=== PATIENT | female | born 1995 | race Caucasian/White ===

== ENCOUNTER 2020-02-02 19:42 | Emergency (ER) | payer OTHER ==
[~2020-02-02] VITALS: Ht 170.2 cm; Wt 132.3 kg
--- NOTE | 2020-02-02 20:30 | NUR ---
PT WITH COMPLAINTS OF LOW BACK PAIN AND LOWER ABD PAIN 01/17 THAT STARTED EARLIER TODAY. PT STATES SHE WAS LIFTING A BRACKET TO PUT ON HER CAR AND ABOUT 2 HOURS LATER WITH LOWER BACK AND LOWER ABD PAIN. PT HR HIGH, ATTACHED TO ALL MONITORS AND POSITION OF COMFORT ASSUMED.
--- NOTE | 2020-02-02 20:32 | NUR ---
PT DENIES URINARY SYMPTOMS BUT STATES SHE HAS HAD N/V X 2 WEEKS.
[2020-02-02] MEDS ORDERED: ZOLOFT (20:35)
--- NOTE | 2020-02-02 21:23 | NUR ---
I MADE 2 UNSUCCESSFUL IV ATTEMPTS.
--- NOTE | 2020-02-02 21:28 | NUR ---
STILL WAITING FOR MD ASSESSMENT AND ORDERS.
--- NOTE | 2020-02-02 21:47 | NUR ---
JACQUES RIVERA TO PLACE PIV
[2020-02-02] MEDS ORDERED: ONDANSETRON 2MG/ML, 2ML ONE (22:27)
[2020-02-02] MEDS ORDERED: KETOROLAC 30 MG/1 ML ONE (22:27)
[2020-02-02] MEDS ORDERED: MORPHINE SULFATE 4 MG/ML, 1ML ONE (22:27)
[2020-02-02] MEDS ORDERED: MORPHINE SULFATE 4 MG/ML, 1ML IVPush PRN (22:30)
[2020-02-02] MEDS ORDERED: KETOROLAC 30 MG/1 ML IVPush ONE (22:30)
[2020-02-02] MEDS ORDERED: ONDANSETRON 2MG/ML, 2ML IVPush ONE (22:30)
[2020-02-02] MEDS ORDERED: SODIUM CHLORIDE FLUSH 10ML SYR IVF ONE (22:30)
--- NOTE | 2020-02-02 22:44 | NUR ---
PT MEDICATED FOR PAIN PER EMAR
[2020-02-02 23:02] LABS: BASOPHILS # (AUTO) 0.04 x10^3/uL (0-0.1); BASOPHILS % (AUTO) 0 % (0-1); EOSINOPHILS # (AUTO) 0.04 x10^3/uL (0-0.4); EOSINOPHILS % (AUTO) 0 % (1-7); LYMPHOCYTES # (AUTO) 2.71 x10^3/uL (1-3.4); LYMPHOCYTES % (AUTO) 23 % (22-44); MD NO; MEAN CORPUSCULAR HEMOGLOBIN 26.4 pg (27.0-34.8); MEAN CORPUSCULAR HGB CONC 32.5 g/dL (32.4-35.8); MEAN CORPUSCULAR VOLUME 81.2 fL (80-100); MEAN PLATELET VOLUME 7.1 fL (7.4-10.4); MONOCYTES # (AUTO) 0.76 x10^3/uL (0.2-0.8); MONOCYTES % (AUTO) 6 % (2-9); NEUTROPHILS # (AUTO) 8.31 x10^3/uL (1.8-6.8); NEUTROPHILS % (AUTO) 70 % (42-75); PLATELET COUNT 362 x10^3/uL (130-400); RED CELL DISTRIBUTION WIDTH 16.5 % (9.6-15.2)
[2020-02-02 23:12] LABS: ALBUMIN 3.1 g/dL (3.4-5.0); ANION GAP 4 mmol/L (5-15); CALCIUM 8.8 mg/dL (8.5-10.1); CHLORIDE 107 mmol/L (98-107); CREATININE 0.72 mg/dL (0.55-1.02)
--- NOTE | 2020-02-02 23:12 | NUR ---
REPORT RECIEVED FROM ZANE HANNA. PATIENT ON ALL MONTIORS, AND ALL SAFETY MEASURES IN PLACE.
[2020-02-02] MEDS ORDERED: SODIUM CHLORIDE 0.9% 1,000ML IVBOLUS ONE (23:30)
[2020-02-02 23:31] LABS: MICROSCOPIC INDICATED
--- NOTE | 2020-02-03 00:11 | NUR ---
PATIENT TO RADIOLOGY
[2020-02-03 00:42] VITALS: BP 109/74
--- NOTE | 2020-02-03 00:44 | NUR ---
PATIENT BACK FROM XRAY, MEDICATED PER EMAR, SAFETY MEASURES IN PLACE.
--- NOTE | 2020-02-03 01:22 | NUR ---
Tiki castrejon in [facility] - 02/03/20 at 0123 by ALLYSON FIRST ATTEMPT TO CALL REPORT TO FLOOR.
== END 2020-02-03 01:37 | disposition home or self-care (01) ==
LOC: ED 02-03 01:00
DX: M54.5 Low back pain (principal); R00.0 Tachycardia, unspecified
CPT/HCPCS: 36415; 72110; 80048; 81001; 82040; 83605; 84703; 85025; 93005; 96361; 96374; 96375; 99285; J1885; J2270; J2405; J7030; J7512

== ENCOUNTER 2020-10-08 11:48 | Emergency (ER) | payer OTHER ==
[~2020-10-08] VITALS: Ht 170.2 cm; Wt 119.7 kg
[~2020-10-08 11:48] MED LIST: ZOLOFT
--- NOTE | 2020-10-08 12:06 | NUR ---
PT AMBULATED TO ROOM FROM TRIAGE. PT STATED THAT SHE IS 17 WEEKS AND CO NAUSEA, VOMITING AND RLQ PAIN SINCE 0300 THIS MORNING. PT DENIES ANY VAGINAL BLEEDING OR DISCHARGE. PT'S HR 130'S-140'S, EKG IN ROOM.
--- NOTE | 2020-10-08 12:25 | NUR ---
US AT BEDSIDE
[2020-10-08] MEDS ORDERED: ONDANSETRON 2MG/ML, 2ML IVPush ONE (12:30)
[2020-10-08] MEDS ORDERED: SODIUM CHLORIDE FLUSH 10ML SYR IVF ONE ×2 (12:30)
[2020-10-08] MEDS ORDERED: SODIUM CHLORIDE 0.9% 1,000ML IVBOLUS ONE ×3 (12:30)
[2020-10-08 12:40] LABS: BASOPHILS % (AUTO) 0 % (0-1); EOSINOPHILS % (AUTO) 0 % (1-7); LYMPHOCYTES % (AUTO) 18 % (22-44); MEAN CORPUSCULAR HEMOGLOBIN 27.5 pg (27.0-34.8); MEAN CORPUSCULAR HGB CONC 33.3 g/dL (32.4-35.8); MEAN PLATELET VOLUME 7.3 fL (7.4-10.4); MONOCYTES % (AUTO) 5 % (2-9); NEUTROPHILS % (AUTO) 77 % (42-75); PLATELET COUNT 275 x10^3/uL (130-400); RED BLOOD COUNT 4.55 x10^6/uL (3.82-5.3); RED CELL DISTRIBUTION WIDTH 16.8 % (9.6-15.2)
[2020-10-08] MEDS ORDERED: ONDANSETRON 2MG/ML, 2ML ONE (12:40)
[2020-10-08 12:48] LABS: ALBUMIN 3.1 g/dL (3.4-5.0); ANION GAP 9 mmol/L (5-15); CALCIUM 8.8 mg/dL (8.5-10.1); CHLORIDE 106 mmol/L (98-107)
[2020-10-08 12:57] LABS: ALANINE AMINOTRANSFERASE 29 U/L (12-78); ALKALINE PHOSPHATASE 64 U/L (45-117); BILIRUBIN,TOTAL 0.5 mg/dL (0.2-1.0); CREATININE 0.61 mg/dL (0.55-1.02); TOTAL PROTEIN 8.2 g/dL (6.4-8.2)
[2020-10-08 13:04] LABS: MICROSCOPIC INDICATED
[2020-10-08 14:00] VITALS: BP 146/81
--- NOTE | 2020-10-08 14:00 | NUR ---
PT RESTING COMFORTABLY IN [facility]. CALL LIGHT WITHIN REACH.
--- NOTE | 2020-10-08 15:15 | NUR ---
DISCHARGE INSTRUCTIONS REVIEWED WITH PT. ALL QUESTIONS ANSWERED AT THIS TIME.
== END 2020-10-08 15:17 | disposition home or self-care (01) ==
LOC: ED 15:05
DX: O23.11 Infections of bladder in pregnancy, first trimester (principal); R42 Dizziness and giddiness; R00.0 Tachycardia, unspecified; R10.31 Right lower quadrant pain; I10 Essential (primary) hypertension; Z3A.16 16 weeks gestation of pregnancy
CPT/HCPCS: 36415; 76700; 76815; 80053; 81001; 83690; 85025; 87040; 87086; 93005; 96361; 96374; 99285; J2405; J7030

== ENCOUNTER 2020-11-18 09:19 | Outpatient (CLI) | payer OTHER ==
[~2020-11-18] VITALS: Ht 170.2 cm; Wt 120.0 kg
[2020-11-18 10:00] VITALS: BP 114/77
[2020-11-18 11:11] LABS: MICROSCOPIC INDICATED
[2020-11-18] MEDS ORDERED: PREN1TAB10 PO (11:29)
== END 2020-11-18 12:05 | disposition home or self-care (01) ==
LOC: LDOP 09:19
PROVIDERS: ATTEND Obstetrics & Gynecology
DX: O46.92 Antepartum hemorrhage, unspecified, second trimester (principal); O26.892 Other specified pregnancy related conditions, second trimester; R25.2 Cramp and spasm; Z3A.22 22 weeks gestation of pregnancy
CPT/HCPCS: 76815; 81001; 87086; 99201; 99211; G0463

== ENCOUNTER 2020-12-20 17:24 | Outpatient (CLI) | payer OTHER ==
[~2020-12-20 17:24] MED LIST changes: +PREN1TAB10 PO
[2020-12-20] MEDS ORDERED: LACTATED RINGERS 1,000 ML IVBOLUS ONE (18:00)
[2020-12-20] MEDS ORDERED: D5%-LACTATED RINGERS 1,000 ML IV SCH (18:00)
[2020-12-20] MEDS ORDERED: ONDANSETRON 2MG/ML, 2ML IVPush PRN (18:00)
[2020-12-20] MEDS ORDERED: ONDANSETRON 2MG/ML, 2ML ONE (18:02)
[2020-12-20 18:15] LABS: BASOPHILS % (AUTO) 0 % (0-1); EOSINOPHILS % (AUTO) 0 % (1-7); LYMPHOCYTES % (AUTO) 18 % (22-44); MEAN CORPUSCULAR HEMOGLOBIN 28.3 pg (27.0-34.8); MEAN CORPUSCULAR HGB CONC 32.8 g/dL (32.4-35.8); MEAN PLATELET VOLUME 6.9 fL (7.4-10.4); MONOCYTES % (AUTO) 6 % (2-9); NEUTROPHILS % (AUTO) 76 % (42-75); PLATELET COUNT 291 x10^3/uL (130-400); RED BLOOD COUNT 3.99 x10^6/uL (3.82-5.3); RED CELL DISTRIBUTION WIDTH 17.1 % (9.6-15.2)
[2020-12-20 18:24] LABS: MICROSCOPIC INDICATED
[2020-12-20 18:25] LABS: ALANINE AMINOTRANSFERASE 13 U/L (12-78); ALBUMIN 2.5 g/dL (3.4-5.0); ANION GAP 8 mmol/L (5-15); CALCIUM 9.1 mg/dL (8.5-10.1); CHLORIDE 103 mmol/L (98-107); CREATININE 0.56 mg/dL (0.55-1.02)
[2020-12-20 18:28] LABS: ALKALINE PHOSPHATASE 85 U/L (45-117); BILIRUBIN,TOTAL 0.4 mg/dL (0.2-1.0); TOTAL PROTEIN 7.4 g/dL (6.4-8.2)
== END 2020-12-20 20:15 | disposition home or self-care (01) ==
LOC: LDOP 17:24
PROVIDERS: ATTEND Obstetrics & Gynecology
DX: O21.2 Late vomiting of pregnancy (principal); O26.892 Other specified pregnancy related conditions, second trimester; R10.9 Unspecified abdominal pain; R19.7 Diarrhea, unspecified; Z3A.26 26 weeks gestation of pregnancy
CPT/HCPCS: 36415; 59025; 80053; 81001; 82570; 84156; 84550; 85025; 87086; 96360; 96361; J7120; J7121

== ENCOUNTER 2020-12-25 15:31 | Outpatient (CLI) | payer OTHER ==
[~2020-12-25] VITALS: Ht 170.2 cm; Wt 120.0 kg
[2020-12-25 16:00] VITALS: BP 131/75
[2020-12-25 16:51] LABS: MICROSCOPIC INDICATED
[2020-12-25] MEDS ORDERED: IBUP-1222 PO ×2 (17:29)
[2020-12-25] MEDS ORDERED: NIFE30TA2 PO ×2 (17:29)
[2020-12-25] MEDS ORDERED: NITR100C56 PO (17:45)
[2020-12-25] MEDS ORDERED: SERT50TA PO (17:45)
== END 2020-12-25 17:56 | disposition home or self-care (01) ==
LOC: LDOP 15:31
PROVIDERS: ATTEND Obstetrics & Gynecology
DX: O46.92 Antepartum hemorrhage, unspecified, second trimester (principal); Z3A.27 27 weeks gestation of pregnancy
CPT/HCPCS: 59025; 76815; 81001; 84112; 87086

== ENCOUNTER 2021-01-23 15:22 | Outpatient (CLI) | payer OTHER ==
[~2021-01-23] VITALS: Ht 170.2 cm; Wt 120.0 kg
[~2021-01-23 15:22] MED LIST changes: +IBUP-1222 PO; +NIFE30TA2 PO; +NITR100C56 PO; +SERT50TA PO
[2021-01-23 15:38] VITALS: BP 147/72
[2021-01-23 16:08] LABS: ALANINE AMINOTRANSFERASE 19 U/L (12-78); ALBUMIN 2.4 g/dL (3.4-5.0); ANION GAP 7 mmol/L (5-15); BILIRUBIN, DIRECT 0.2 mg/dL (0.1-0.2); CALCIUM 9.1 mg/dL (8.5-10.1); CHLORIDE 106 mmol/L (98-107); CREATININE 0.49 mg/dL (0.55-1.02)
[2021-01-23 16:11] LABS: ALKALINE PHOSPHATASE 97 U/L (45-117); BILIRUBIN,TOTAL 0.4 mg/dL (0.2-1.0); TOTAL PROTEIN 7.7 g/dL (6.4-8.2)
[2021-01-23 16:18] LABS: BASOPHILS % (AUTO) 0 % (0-1); EOSINOPHILS % (AUTO) 0 % (1-7); LYMPHOCYTES % (AUTO) 17 % (22-44); MEAN CORPUSCULAR HEMOGLOBIN 27.7 pg (27.0-34.8); MEAN CORPUSCULAR HGB CONC 32.4 g/dL (32.4-35.8); MEAN PLATELET VOLUME 6.8 fL (7.4-10.4); MONOCYTES % (AUTO) 8 % (2-9); NEUTROPHILS % (AUTO) 74 % (42-75); PLATELET COUNT 297 x10^3/uL (130-400); RED BLOOD COUNT 4.11 x10^6/uL (3.82-5.3); RED CELL DISTRIBUTION WIDTH 17.6 % (9.6-15.2)
[2021-01-23 17:37] LABS: FREE T4 (FREE THYROXINE) 0.95 ng/dL (0.76-1.46)
[2021-01-23 18:11] LABS: MICROSCOPIC INDICATED
== END 2021-01-23 19:10 | disposition home or self-care (01) ==
LOC: LDOP 15:22
PROVIDERS: ATTEND Obstetrics & Gynecology
DX: O99.413 Diseases of the circulatory system complicating pregnancy, third trimester (principal); O16.3 Unspecified maternal hypertension, third trimester; Z3A.31 31 weeks gestation of pregnancy
CPT/HCPCS: 36415; 59025; 76815; 80053; 81001; 82248; 82570; 84156; 84439; 84443; 84550; 85025; 86592; 86803; 87806; 93005; G0475

== ENCOUNTER 2021-02-06 15:08 | Outpatient (CLI) | payer OTHER ==
[~2021-02-06] VITALS: Ht 170.2 cm; Wt 120.9 kg
[2021-02-06 15:22] VITALS: BP 134/73
[2021-02-06 15:39] LABS: BASOPHILS % (AUTO) 0 % (0-1); EOSINOPHILS % (AUTO) 0 % (1-7); LYMPHOCYTES % (AUTO) 16 % (22-44); MEAN CORPUSCULAR HEMOGLOBIN 28.1 pg (27.0-34.8); MEAN PLATELET VOLUME 6.6 fL (7.4-10.4); MONOCYTES % (AUTO) 7 % (2-9); NEUTROPHILS % (AUTO) 76 % (42-75); PLATELET COUNT 294 x10^3/uL (130-400); RED BLOOD COUNT 3.92 x10^6/uL (3.82-5.3); RED CELL DISTRIBUTION WIDTH 17.6 % (9.6-15.2)
[2021-02-06 15:47] LABS: ALANINE AMINOTRANSFERASE 18 U/L (12-78); ALBUMIN 2.2 g/dL (3.4-5.0); ANION GAP 7 mmol/L (5-15); BILIRUBIN, DIRECT 0.1 mg/dL (0.1-0.2); CALCIUM 8.9 mg/dL (8.5-10.1); CHLORIDE 106 mmol/L (98-107); CREATININE 0.49 mg/dL (0.55-1.02)
[2021-02-06 15:50] LABS: ALKALINE PHOSPHATASE 108 U/L (45-117); BILIRUBIN,TOTAL 0.4 mg/dL (0.2-1.0); TOTAL PROTEIN 7.2 g/dL (6.4-8.2)
[2021-02-06 17:16] LABS: MICROSCOPIC AUTO
[2021-02-06 18:08] LABS: AMPHETAMINE SCREEN, URINE Negative (Negative); BARBITURATE SCREEN, URINE Negative (Negative); BENZODIAZEPINE SCREEN, URINE Negative (Negative); CANNABINOID SCREEN, URINE Negative (Negative); COCAINE SCREEN, URINE Negative (Negative); METHADONE SCREEN, URINE Negative (Negative); OPIATE SCREEN, URINE Negative (Negative); PROTEIN/CREATININE RATIO,URINE 299 (0-200); TOTAL PROTEIN,URINE RANDOM 21 mg/dL (0-12)
== END 2021-02-06 19:00 | disposition home or self-care (01) ==
LOC: LDOP 15:08
PROVIDERS: ATTEND Obstetrics & Gynecology
DX: O13.3 Gestational [pregnancy-induced] hypertension without significant proteinuria, third trimester (principal); Z3A.33 33 weeks gestation of pregnancy
CPT/HCPCS: 36415; 59025; 80053; 80307; 81001; 82248; 82570; 84156; 84550; 85025; 87086

== ENCOUNTER 2021-02-09 21:31 | Outpatient (CLI) | payer OTHER ==
[~2021-02-09] VITALS: Ht 170.2 cm; Wt 121.4 kg
== END 2021-02-09 23:14 | disposition home or self-care (01) ==
LOC: LDOP 21:31
PROVIDERS: ATTEND Obstetrics & Gynecology
DX: O36.8130 Decreased fetal movements, third trimester, not applicable or unspecified (principal); Z3A.34 34 weeks gestation of pregnancy
CPT/HCPCS: 59025; 76815

== ENCOUNTER 2021-02-11 23:41 | Outpatient (CLI) | payer OTHER ==
[2021-02-12 00:21] LABS: MICROSCOPIC INDICATED
[2021-02-12 00:29] LABS: CREATININE,URINE RANDOM 93.3 mg/dL
[2021-02-12 00:30] LABS: ANION GAP 7 mmol/L (5-15); BASOPHILS % (AUTO) 0 % (0-1); CALCIUM 8.6 mg/dL (8.5-10.1); CHLORIDE 105 mmol/L (98-107); CREATININE 0.47 mg/dL (0.55-1.02); EOSINOPHILS % (AUTO) 0 % (1-7); LYMPHOCYTES % (AUTO) 24 % (22-44); MEAN CORPUSCULAR HEMOGLOBIN 28.2 pg (27.0-34.8); MEAN CORPUSCULAR HGB CONC 33.1 g/dL (32.4-35.8); MEAN PLATELET VOLUME 6.8 fL (7.4-10.4); MONOCYTES % (AUTO) 11 % (2-9); NEUTROPHILS % (AUTO) 65 % (42-75); PLATELET COUNT 280 x10^3/uL (130-400); RED BLOOD COUNT 3.56 x10^6/uL (3.82-5.3); RED CELL DISTRIBUTION WIDTH 17.5 % (9.6-15.2)
[2021-02-12 00:31] LABS: ALANINE AMINOTRANSFERASE 18 U/L (12-78); ALBUMIN 2.1 g/dL (3.4-5.0)
[2021-02-12 00:33] LABS: ALKALINE PHOSPHATASE 89 U/L (45-117); BILIRUBIN,TOTAL 0.2 mg/dL (0.2-1.0); TOTAL PROTEIN 6.8 g/dL (6.4-8.2)
[2021-02-12 00:39] LABS: BILIRUBIN, DIRECT < 0.1 mg/dL (0.1-0.2)
== END 2021-02-12 01:15 | disposition home or self-care (01) ==
LOC: LDOP 23:41
PROVIDERS: ATTEND Obstetrics & Gynecology
DX: O16.3 Unspecified maternal hypertension, third trimester (principal); Z3A.34 34 weeks gestation of pregnancy
CPT/HCPCS: 36415; 59025; 80053; 81001; 82248; 82570; 84156; 84550; 85025; 87086

== ENCOUNTER 2021-02-13 09:39 | Outpatient (CLI) | payer OTHER ==
[~2021-02-13] VITALS: Ht 170.2 cm; Wt 121.4 kg
[2021-02-13 09:48] VITALS: BP 121/76
== END 2021-02-13 11:20 | disposition home or self-care (01) ==
LOC: LDOP 09:39
PROVIDERS: ATTEND Obstetrics & Gynecology
DX: Z34.93 Encounter for supervision of normal pregnancy, unspecified, third trimester (principal); Z3A.34 34 weeks gestation of pregnancy
CPT/HCPCS: 59025

== ENCOUNTER 2021-03-01 19:56 | Inpatient (IN) | payer OTHER ==
[~2021-03-01] VITALS: Ht 170.2 cm; Wt 122.2 kg
[2021-03-01] MEDS: LACTATED RINGERS 1,000 ML IV SCH (20:30)
[2021-03-01 20:58] LABS: MICROSCOPIC INDICATED
[2021-03-01] MEDS ORDERED: ONDANSETRON 2MG/ML, 2ML IVPush PRN (21:00)
[2021-03-01] MEDS ORDERED: OXYTOCIN 30U/ 0.9% NaCL 500ML 500 ML IV ONE (21:00)
[2021-03-01] MEDS ORDERED: METOCLOPRAMIDE 5 MG/ML, 2ML IVPush PRN (21:00)
[2021-03-01] MEDS ORDERED: TERBUTALINE 1 MG/ML, 1ML SQ PRN (21:00)
[2021-03-01] MEDS ORDERED: SODIUM CITRATE/CITRIC ACID 30 ML UDC PO PRN (21:00)
[2021-03-01] MEDS ORDERED: FENTANYL PF 100 MCG/2ML IV PRN (21:00)
[2021-03-01] MEDS ORDERED: TERBUTALINE 1 MG/ML, 1ML IVPush PRN (21:00)
[2021-03-01] MEDS: D5%-LACTATED RINGERS 1,000 ML IV SCH (21:00)
[2021-03-01] MEDS ORDERED: FENTANYL PF 100 MCG/2ML IVPush PRN (21:00)
[2021-03-01] MEDS ORDERED: CALCIUM CARBONATE 500 MG TAB.CHEW PO PRN (21:00)
[2021-03-01 21:25] LABS: ALANINE AMINOTRANSFERASE 11 U/L (12-78); ALBUMIN 2.2 g/dL (3.4-5.0); ANION GAP 6 mmol/L (5-15); CALCIUM 8.4 mg/dL (8.5-10.1); CHLORIDE 105 mmol/L (98-107)
[2021-03-01 21:28] LABS: ALKALINE PHOSPHATASE 113 U/L (45-117); BILIRUBIN,TOTAL 0.3 mg/dL (0.2-1.0); CREATININE 0.62 mg/dL (0.55-1.02); TOTAL PROTEIN 7.1 g/dL (6.4-8.2)
[2021-03-01 21:31] LABS: BILIRUBIN, DIRECT < 0.1 mg/dL (0.1-0.2)
[2021-03-01 21:42] LABS: BASOPHILS % (AUTO) 0 % (0-1); EOSINOPHILS % (AUTO) 0 % (1-7); LYMPHOCYTES % (AUTO) 20 % (22-44); MEAN CORPUSCULAR HEMOGLOBIN 28.5 pg (27.0-34.8); MEAN CORPUSCULAR HGB CONC 33.7 g/dL (32.4-35.8); MEAN PLATELET VOLUME 6.9 fL (7.4-10.4); MONOCYTES % (AUTO) 9 % (2-9); NEUTROPHILS % (AUTO) 71 % (42-75); PLATELET COUNT 257 x10^3/uL (130-400); RED CELL DISTRIBUTION WIDTH 17.6 % (9.6-15.2)
[2021-03-01] MEDS: MISOPROSTOL 25 MCG TABLET VG PRN (22:14)
[2021-03-02] MEDS: D5%-LACTATED RINGERS 1,000 ML IV SCH ×3 (05:00→21:00)
[2021-03-02] MEDS: MISOPROSTOL 25 MCG TABLET VG PRN (06:32)
[2021-03-02] MEDS ORDERED: OXYTOCIN 30U/ 0.9% NaCL 500ML 500 ML ONE (10:56)
[2021-03-02] MEDS: LACTATED RINGERS 1,000 ML IV SCH ×4 (11:00→21:00)
[2021-03-02] MEDS ORDERED: FENTANYL/BUPIV./NS/PF 250 ML EPIDCONT ONE (19:16)
[2021-03-02] MEDS ORDERED: BUPIVACAINE 0.25% ONE (19:16)
[2021-03-02] MEDS ORDERED: FENTANYL/BUPIV./NS/PF 250 ML EPIDCONT SCH (20:00)
[2021-03-02] MEDS ORDERED: EPHEDRINE 50 MG/ML, 1ML IVPush PRN (20:00)
[2021-03-02] MEDS ORDERED: LACTATED RINGERS 1,000 ML IVBOLUS PRN (20:00)
[2021-03-03] MEDS ORDERED: NEWBORN KIT ONE (02:27)
[2021-03-03] MEDS ORDERED: MISOPROSTOL 200 MCG TABLET ONE (03:21)
[2021-03-03] MEDS ORDERED: IBUPROFEN 800 MG TABLET PO PRN (04:00)
[2021-03-03] MEDS: OXYTOCIN 30U/ 0.9% NaCL 500ML 500 ML IV SCH ×2 (04:00→14:00)
[2021-03-03] MEDS: LACTATED RINGERS 1,000 ML IV SCH ×5 (04:00→16:23)
[2021-03-03] MEDS ORDERED: HYDROcodone/APAP 5/325 TABLET PO PRN (04:00)
[2021-03-03] MEDS ORDERED: MISOPROSTOL 200 MCG TABLET PR PRN (04:00)
[2021-03-03] MEDS ORDERED: BISACODYL 10 MG SUPP PR PRN (04:00)
[2021-03-03] MEDS ORDERED: ACETAMINOPHEN 325 MG TABLET PO PRN (04:00)
[2021-03-03] MEDS ORDERED: OXYcodone/APAP 5/325MG TABLET PO PRN (04:00)
[2021-03-03] MEDS ORDERED: RHOGAM FROM BLOOD BANK 1 NOTE EA IM/IV ONE (04:00)
[2021-03-03] MEDS ORDERED: ONDANSETRON 2MG/ML, 2ML IV PRN (04:00)
[2021-03-03] MEDS: D5%-LACTATED RINGERS 1,000 ML IV SCH ×2 (05:00→13:00)
[2021-03-03 06:00] VITALS: BP 103/62
[2021-03-03 08:00] VITALS: BP 130/74
[2021-03-03] MEDS: DOCUSATE 100 MG CAPSULE PO PRN ×2 (09:58→20:20)
[2021-03-03] MEDS: PRENATAL VIT/IRON/FA 1 EACH TABLET PO SCH (09:58)
[2021-03-03 10:53] LABS: BASOPHILS % (AUTO) 0 % (0-1); EOSINOPHILS % (AUTO) 0 % (1-7); LYMPHOCYTES % (AUTO) 8 % (22-44); MEAN CORPUSCULAR HEMOGLOBIN 28.7 pg (27.0-34.8); MEAN CORPUSCULAR HGB CONC 34.1 g/dL (32.4-35.8); MEAN PLATELET VOLUME 7.1 fL (7.4-10.4); MONOCYTES % (AUTO) 9 % (2-9); NEUTROPHILS % (AUTO) 83 % (42-75); PLATELET COUNT 212 x10^3/uL (130-400); RED BLOOD COUNT 3.39 x10^6/uL (3.82-5.3); RED CELL DISTRIBUTION WIDTH 17.6 % (9.6-15.2)
[2021-03-03 12:00] VITALS: BP 123/84
[2021-03-03 20:30] VITALS: BP 122/82
[2021-03-04] MEDS: PRENATAL VIT/IRON/FA 1 EACH TABLET PO SCH (09:00)
[2021-03-04] MEDS: OXYTOCIN 30U/ 0.9% NaCL 500ML 500 ML IV SCH ×2 (10:00)
[2021-03-04] MEDS ORDERED: DOCU-131 PO (11:37)
[2021-03-04] MEDS ORDERED: IBUP-1222 PO (11:37)
== END 2021-03-04 13:40 | disposition home or self-care (01) | DRG 807 ==
LOC: LDIP 19:56 → 2NW 03-03 05:36
PROVIDERS: ADMIT Obstetrics & Gynecology; ATTEND Obstetrics & Gynecology
PROC: 10E0XZZ Delivery of Products of Conception, External Approach (ICD-10-PCS; principal; 2021-03-03)
PROC: 3E0R3BZ Introduction of Anesthetic Agent into Spinal Canal, Percutaneous Approach (ICD-10-PCS; 2021-03-03)
PROC: 00HU33Z Insertion of Infusion Device into Spinal Canal, Percutaneous Approach (ICD-10-PCS; 2021-03-03)
DX: O11.4 Pre-existing hypertension with pre-eclampsia, complicating childbirth (principal); Z37.0 Single live birth; O26.893 Other specified pregnancy related conditions, third trimester; O69.81X0 Labor and delivery complicated by cord around neck, without compression, not applicable or unspecified; O99.214 Obesity complicating childbirth; F32.9 Major depressive disorder, single episode, unspecified; O99.284 Endocrine, nutritional and metabolic diseases complicating childbirth; O99.344 Other mental disorders complicating childbirth; E66.01 Morbid (severe) obesity due to excess calories; Z20.822 Contact with and (suspected) exposure to COVID-19; E55.9 Vitamin D deficiency, unspecified; Z3A.37 37 weeks gestation of pregnancy; Z67.91 Unspecified blood type, Rh negative; Z80.1 Family history of malignant neoplasm of trachea, bronchus and lung; Z81.8 Family history of other mental and behavioral disorders; Z82.49 Family history of ischemic heart disease and other diseases of the circulatory system; Z83.3 Family history of diabetes mellitus
CPT/HCPCS: 36415; 80053; 81001; 82248; 82570; 84156; 84550; 85025; 85461; 86592; 86850; 86900; 87086; 87635; G0378; J2790; J3010; J2590; J7120